=== PATIENT | female | born 1965 | race Caucasian/White ===

== ENCOUNTER → 2025-07-01 15:22 | Outpatient (CLI) | payer OTHER ==
[~2025-07-01 15:22] MED LIST: PERCOCET 5/3251 TAB PO
[2025-07-01 16:20] LABS: BUN CREA RATIO 17.0 (7.0-25.0); CREATININE SERUM 0.86 mg/dL (0.55-1.02); GFR 67.77; GLUCOSE FASTING 129.0 mg/dL (65-100); OSMOLALITY SERUM 289.0 MOSM/KG (275-295)
== END | disposition home or self-care (01) ==
LOC: LAB 15:22
PROVIDERS: ATTEND Urology
DX: C67.9 Malignant neoplasm of bladder, unspecified (principal)

== ENCOUNTER 2025-07-02 09:01 | Outpatient (CLI) | payer OTHER | END 2025-07-02 09:19 | disposition home or self-care (01) | LOC: TOM 09:01 | PROVIDERS: ATTEND Urology | DX: R31.21 Asymptomatic microscopic hematuria (principal); R31.0 Gross hematuria; Z88.0 Allergy status to penicillin; Z88.6 Allergy status to analgesic agent; Z88.8 Allergy status to other drugs, medicaments and biological substances; Z91.018 Allergy to other foods ==